=== PATIENT | female | born 1995 | race Caucasian/White ===

== ENCOUNTER 2023-08-04 18:43 | Emergency (ER) | payer OTHER ==
[2023-08-04] MEDS ORDERED: Rabies Vaccine Human 2.5 UNITS VIAL IM ONE (20:00)
[2023-08-04] MEDS ORDERED: Rabies Immune Globulin/PF 300 UNITS/ML VIAL IM SCH (20:00)
[2023-08-04] MEDS ORDERED: Boostrix 0.5 ML (Tdap) VIAL (>/=7 yrs of age) ONE (20:25)
== END 2023-08-04 21:00 | disposition home or self-care (01) ==
LOC: CSHERS 18:43
DX: S61.552A Open bite of left wrist, initial encounter (principal); W55.01XA Bitten by cat, initial encounter
CPT/HCPCS: 90375; 90471; 90472; 90675; 90715; 96372

== ENCOUNTER → 2023-08-07 | Emergency (ER) | payer OTHER ==
[~2023-08-07] MED LIST: Rabies Vaccine Human 2.5 UNITS VIAL IM ONE
== END ==
LOC: CSHER/OP 16:46
DX: Z23 Encounter for immunization (principal)
CPT/HCPCS: 90471; 90675

== ENCOUNTER → 2023-08-11 | Day surgery (SDC) | payer OTHER | LOC: CSHER/OP 11:27 | PROVIDERS: ATTEND Pathology Anatomic Pathology & Clinical Pathology | DX: Z23 Encounter for immunization (principal) | CPT/HCPCS: 90675 ==

== ENCOUNTER → 2023-08-18 | Day surgery (SDC) | payer OTHER | LOC: CSHER/OP 11:17 | PROVIDERS: ATTEND Pathology Anatomic Pathology & Clinical Pathology | DX: Z23 Encounter for immunization (principal) | CPT/HCPCS: 90675 ==